=== PATIENT | male | born 1975 | race Caucasian/White ===

== ENCOUNTER → 2019-02-28 16:07 | Outpatient (CLI) | payer OTHER ==
[~2019-02-28 16:07] MED LIST: INTESTINEX1 CAP PO; LIPITOR20 MG; ZANTAC300 MG PO
== END | disposition home or self-care (01) ==
LOC: LAB 16:07
DX: L98.8 Other specified disorders of the skin and subcutaneous tissue (principal); B00.89 Other herpesviral infection

== ENCOUNTER 2019-06-07 11:39 | Outpatient (CLI) | payer OTHER | END 2019-06-07 15:00 | disposition home or self-care (01) | LOC: LAB 11:39 | DX: J11.1 Influenza due to unidentified influenza virus with other respiratory manifestations (principal); J06.9 Acute upper respiratory infection, unspecified ==